=== PATIENT | male | born 1960 | race Caucasian/White ===

== ENCOUNTER 2023-02-08 10:50 | Inpatient (IN) | payer MEDICAID, SELFPAY ==
[2023-02-08] VITALS (36 sets, daily range): BP systolic 114–161; BP diastolic 57–92; PULSE 61–91; RESP 12–25; TEMP 36.4–36.6; O2SAT 90–99; BMI 40.9
--- NOTE | 2023-02-08 | ECHO_ITS ---
Patient Info Name: Andrew Pérez Age: 62 years : 1960 Gender: Male Ht: 72 in Wt: 299 lbs BSA: 2.68 m2 HR: 78 bpm BP: 116 / 62 mmHg Heart Rhythm: Sinus Rhythm Technical Quality: Fair Exam Date: 02/08/2023 4:12 PM Exam Location: [facility] Pulmonary Exam Room: 200 Patient Status: Inpatient Admit Date: 02/08/2023 Staff Ordering Physician: Sanjana Corbin MD (zamzam/cynthia) Board Certified Music Therapist: Akosua Tejada RDCS Attending Provider: Bridger Landaverde MD Referring Physician: Shaquille MICHEL; Exam Type: CA echo dop color flow w con Study Info Indications - chest pain nstem Complete two-dimensional, color flow and Doppler transthoracic echocardiogram is performed with contrast to opacify the left ventricle and to improve the deliniation of the left ventricle endocardial borders. Contrast/Agitated Saline Contrast/Ag. Saline: Definity Amount: --- ml Administered By: Akosua Tejada [facility] Existing IV Access: Yes IV Access Condition: patent with no signs of infiltration Summary 1. Technically difficult echocardiogram. 2. Normal left ventricular size with slight reduction in global systolic function. 3. Posterior and lateral hypokinesia. 4. Mildly sclerotic aortic valve. 5. Trivial mitral regurgitation. Left Ventricle Left ventricular chamber dimension is normal. Left ventricular systolic function is mildly reduced, estimated at 45-50%. The left ventricular diastolic function is grade I diastolic dysfunction. Right Ventricle Right ventricular chamber dimension is normal. Left Atria Left atrial chamber dimension is normal. Right Atria Right atrial chamber dimension is normal. Aortic Valve The aortic valve is normal. Pulmonic Valve The pulmonic valve is not well visualized. Mitral Valve The mitral valve has normal leaflets. There is trace mitral valve regurgitation. Tricuspid Valve The tricuspid valve leaflets are normal. Pericardium/Pleural The pericardium appears normal. Aorta The aortic root size at the sinus of Valsalva is normal. Left Ventricular Outflow Tract Name Value Normal LVOT 2D LVOT Diameter 2.09 cm LVOT Doppler LVOT Peak Gradient 6 mmHg LVOT Mean Gradient 3 mmHg LVOT VTI 24.41 cm LVOT VTI/AV VTI Ratio 0.75 LVOT Stroke Volume 83.84 ml LVOT CO 18.11 l/min LVOT CI 6.75 L/min/m2 Pulmonic Valve Name Value Normal PV Doppler PV Peak Gradient 6 mmHg Mitral Valve Name Value Normal
--- NOTE | ~2023-02-08 | CT_ITS ---
EXAMINATION: CTA chest abdomen pelvis DATE: 02/08/2023 13:03 INDICATION: Chest and abdominal pain. TECHNIQUE: Computed tomographic angiography (CTA) of the chest, abdomen, and pelvis was performed wit h 100 mL Omnipaque-350 intravenous contrast. Automated exposure control and iterative reconstruction technique were employed. The dose-length product was 1960.96 mGy-cm. Maximum intensity projection 3D- reconstructions of the aorta and other arteries were constructed by the technologist on a separate wo rkstation. COMPARISON: None. FINDINGS: CHEST CTA: There is mild emphysema. There is mild dependent atelectasis bilaterally. There is a 7 mm nodule at r ight major fissure, likely benign. The heart size is normal. There are coronary artery calcifications . No pericardial effusion. There is no pulmonary embolus. There is mild aortic atherosclerosis. No an eurysm or dissection. ABDOMEN AND PELVIS CTA: The liver is normal. The gallbladder is distended. The spleen, pancreas, and left adrenal gland are n ormal. There is a 17 mm mass in right adrenal gland measuring soft tissue attenuation. There are cyst s in the kidneys measuring up to 15 mm on the right. There is a 4 mm stone in right kidney. The prost ate is mildly enlarged. There is diverticulosis of the colon without evidence of diverticulitis. The appendix is normal. There are no dilated loops of bowel. There are no pathologically enlarged lymph n odes. There is calcified atherosclerosis of the aorta and many of the other arteries. There is no guille e intraperitoneal fluid. There is mild lumbar spondylosis. IMPRESSION: 1. Aortic atherosclerosis. No aneurysm or dissection. 2. Gallbladder distention, which may be secondary to fasting. Correlate with physical exam to exclude acute cholecystitis. 3. Mild emphysema. 4. 17 mm right adrenal mass. In the absence of known malignancy, this finding is likely an adenoma. Reviewed, dictated and finalized at location A. IMPRESSION: 1. Aortic atherosclerosis. No aneurysm or dissection. 2. Gallbladder distention, which may be secondary to fasting. Correlate with ph ysical exam to exclude acute cholecystitis. 3. Mild emphysema. 4. 17 mm right adrenal mass. In the absence of known malignancy, this finding i s likely an adenoma.
--- NOTE | ~2023-02-08 | XR_ITS ---
EXAMINATION: XR chest 2V DATE: 02/08/2023 11:34 INDICATION: Chest pain radiating into the left arm TECHNIQUE: PA and lateral views of the chest were obtained. COMPARISON: None FINDINGS: The lungs are clear with no focal airspace opacities, pulmonary edema, pleural effusion or pneumothor ax. The cardiomediastinal silhouette is normal. Mild thoracic spondylosis. IMPRESSION: 1. No acute cardiopulmonary disease. Reviewed, dictated and finalized at location A.
--- NOTE | 2023-02-08 10:52 | ECG_ITS ---
Measurements Intervals [place] Rate: 64 P: 53 WA: 151 QRS: 60 QRSD: 109 T: 76 QT: 400 QTc: 416 Interpretive Statements SINUS RHYTHM POSSIBLE LEFT ATRIAL ENLARGEMENT [-0.1mV P WAVE IN V1/V2] POSSIBLE RIGHT VENTRICULAR CONDUCTION DELAY [RSR (QR) IN V1/V2] NO PREVIOUS ECG AVAILABLE FOR COMPARISON Electronically Signed On 02-08-2023 14:20:41 CDT by Sanjana Corbin M.D.
[2023-02-08 11:12] LABS: Basophils Absolute Auto 0.1 K/mm3 (0.0-0.1); Basophils Percent Auto 0.4 % (0.2-1.2); Eosinophils Absolute Auto 0.3 K/mm3 (0-0.3); Hematocrit 45.9 % (42.0-52.0); Hemoglobin 15.4 g/dL (14.0-18.0); Immature Granulocyte Percent A 0.6 % (0-0.5); Lymphocytes Absolute Auto 3.02 K/mm3 (0.9-3.2); Lymphocytes Percent Auto 18.7 % (18.3-44.2); Mean Corpuscular HGB Conc 33.6 g/dl (32-36); Mean Corpuscular Hemoglobin 29.5 pg (26-34); Mean Corpuscular Volume 87.9 fl (80-100); Mean Platelet Volume 9.2 fl (7.4-10.4); Monocytes Absolute Auto 0.7 K/mm3 (0.1-0.6); Monocytes Percent Auto 4.3 % (2.6-8.5); Platelet Count Result 287 k/mm3 (150-375); Red Blood Count 5.22 M/mm3 (4.6-6.20); Red Cell Distribution Width 13.2 % (11.5-14.5); White Blood Count 16.2 K/mm3 (4.5-10.0)
[2023-02-08 11:20] LABS: Alanine Aminotransferase 20 U/L (6-50); Albumin Level 4.3 g/dL (3.5-5.1); Alkaline Phosphatase 107 U/L (38-126); Anion Gap 9 mmol/L (8-16); Aspartate Amino Transferase 30 U/L (17-59); Bilirubin,Total 1.3 mg/dL (0.2-1.3); Blood Urea Nitrogen 12 mg/dL (9-20); Calcium 9.1 mg/dL (8.4-10.2); Carbon Dioxide 29 mmol/L (22-30); Chloride 100 mmol/L (98-107); Estimated CRCL calculation 121 ml/min; Estimated Glomerular Filt Rate > 60; Glucose 160 mg/dL (65-110); Lipase 59 U/L (23-300); Potassium 3.5 mmol/L (3.4-5.0); Sodium 138 mmol/L (137-145)
[2023-02-08 11:24] LABS: Partial Thromboplastin Time 24.9 SECONDS (22.3-36.8); Prothrombin Time 12.9 Seconds (11.1-14.7)
[2023-02-08 11:37] LABS: Troponin I 0.124 ng/mL (0.000-0.034)
--- NOTE | 2023-02-08 12:25 | ECG_ITS ---
Measurements Intervals [place] Rate: 61 P: 46 ME: 158 QRS: 49 QRSD: 100 T: 64 QT: 419 QTc: 423 Interpretive Statements SINUS RHYTHM POSSIBLE RIGHT VENTRICULAR CONDUCTION DELAY [RSR (QR) IN V1/V2] COMPARED TO ECG 02/08/2023 10:54:12 NO SIGNIFICANT CHANGES Electronically Signed On 02-08-2023 14:23:15 CDT by Sanjana Corbin M.D.
--- NOTE | 2023-02-08 12:39 | PC.NURSE ---
c/o dizziness and cold sweat. HR in the 30's when nurse entered room. Pt c/o hurting all over .
--- NOTE | 2023-02-08 12:40 | ECG_ITS ---
Measurements Intervals [place] Rate: 61 P: 53 MO: 153 QRS: 47 QRSD: 106 T: 87 QT: 436 QTc: 442 Interpretive Statements SINUS RHYTHM RIGHT VENTRICULAR CONDUCTION ABNORMALITY T-WAVE ABNORMALITY CONSIDER LATERAL ISCHEMIA COMPARED TO PREVIOUS TRACING NO SIGNIFICANT DIFFERENCE COMPARED TO ECG 02/08/2023 12:42:20 NO SIGNIFICANT DIFFERENCE Electronically Signed On 02-09-2023 7:40:53 CDT by Bridger Viveros M.D.
--- NOTE | 2023-02-08 12:44 | ED.CHESTPAIN ---
HPI - Chest Pain General Chief Complaint: Chest Pain Stated Complaint: Chest pain Time Seen by Provider: 02/08/23 12:09 History of Present Illness HPI narrative: This is a 62-year-old male, with history of hypertension and hyperlipidemia, presenting to the emergency department complaining of chest pain for the past 2 days. He states 2 days ago, while eating spicy chili he developed chest pressure rated 8/10 radiating to left arm that improved spontaneously after approximately 20 minutes. Today he notes recurrence of the pain while sleeping, however it is now persistent. He denies pain elsewhere. Related Data Home Medications Medication Instructions Recorded Confirmed lisinopril 20 1 tablet DAILY 02/08/23 02/08/23 mg-hydrochlorothiazide 12.5 mg tablet metoprolol tartrate 50 mg tablet 50 mg PO BID 02/08/23 02/08/23 Allergies Allergy/AdvReac Type Severity Reaction Status Date / Time No Known Allergies Allergy Verified 02/08/23 11:42 Review of Systems Review of Systems: CONSTITUTIONAL: Denies fever, chills, or sweats. CARDIOVASCULAR: Chest pain denies palpitations, or edema. RESPIRATORY: Denies cough or dyspnea. GASTROINTESTINAL: Denies abdominal pain, nausea, vomiting, or diarrhea. GENITOURINARY: Denies dysuria or hematuria. SKIN: Denies rash or itching. MUSCULOSKELETAL: Left arm numbness denies back pain, joint pain, or myalgia. NEUROLOGIC: Denies headache, numbness, dizziness, or weakness. PSYCHIATRIC: Denies anxiety or depression. [facility] Past Medical History Medical History Aortic atherosclerosis Noted on CT on 02/08/2023. 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 Likely an adenoma. Surgical History Surgical History No history of previous surgery Family History Family History Mother Aortic aneurysm Father Metastatic cancer Social History Social History Social History: Surrogate medical decision maker: Code status: Full code. Smoking packs per day: 1 Smoking cigarettes per day: 20.0 Years smoked: 20 Smoking pack-years: 20.00 Smoking status: Former smoker Tobacco type: cigarettes Smoking end date: 11/05/01 Additional smoking assessment comments: Smoked 1 to 2 packs of cigarettes per day. Alcohol intake: current Drinks per week: 9 Alcohol use details: Three alcoholic beverages a week. Substance use: current Substance use type: marijuana Other substance usage details: 1 joint a day. Lack of Transportation: No Lack of Food: Never True Current Housing: Decline to Answer Concerned About Future Housing: No Difficulty Paying Gas/Electric Bills: No Difficulty Paying for Meds: No Currently Unemployed: No Education: Decline to Answer Difficulty w/ Childcare or Family Care: Decline to Answer Additional living arrangements comments: Lives with spouse, child, and grandson in [place]. Additional occupation/education comments: [employer]. Spiritual care concerns: No Exam Narrative: GENERAL: Well-developed, well-nourished, and in no acute distress. HEAD: Normocephalic, atraumatic. EYES: PERRLA and EOMI. ENT: Nares clear, no rhinorrhea or epistaxis. Mucous membranes moist. Oropharynx without tonsillar hypertrophy exudate or other lesions. CHEST: Clear to auscultation. No respiratory distress. No wheezes rales or rhonchi HEART: Regular rate and rhythm. No murmur heard. Pulses in the bilateral upper extremities, 1+ pulses in the bilateral lower extremities. ABDOMEN: Soft, nontender, nondistended, normal active bowel sounds. EXTREMITIES: Normal range of motion. No edema. SKIN: Warm, dry, no rash. NEURO: No focal deficits. Alert and oriented x3.
[2023-02-08] MEDS: ONDANSETRON INJ 4 MG/2 ML VIAL IV PUSH ×2 (13:11→17:45)
[2023-02-08] MEDS: MORPHINE SULFATE (*CRX) 4 MG/ML INJ IV PUSH ×2 (13:11→21:14)
--- NOTE | 2023-02-08 14:10 | PM.IMHP ---
H&P: HPI History of Present Illness Date/Time: 02/08/23 14:10 Chief Complaint: Chest pain. Narrative: This is a very pleasant 62-year-old male with hypertension and prediabetes who presented to the emergency department from home for evaluation of chest pain. Patient provides the following history. Not long after eating spicy chili on Sunday he developed chest discomfort which resolved after belching a couple of times. Since that time he has been experiencing exertional, midsternal chest pressure, mainly with stairs, which radiates into the left upper arm. Associated symptoms include mild shortness of breath, nausea, and perhaps a bit of lightheadedness. He has never had similar symptoms and he has no known personal or family history of coronary artery disease. He has never had a stress test. He does not typically experience GERD symptoms and the incident on after eating chili seems to be incidental. He has not had fever, chills, sweats, epigastric or abdominal pain, or vomiting. In the ED: Vital signs were stable on arrival, blood pressures were a bit elevated in the 150s systolic. Pertinent labs include a white blood cell count of 16.2, random glucose of 160, and a troponin of 0.124. CMP and lipase were unremarkable. Chest x-ray showed no acute cardiopulmonary disease. CT of the chest, abdomen, and pelvis showed aortic atherosclerosis with no aneurysm or dissection, mild emphysema, 17 mm right adrenal mass which is likely an adenoma, and gallbladder distension which may be secondary to fasting. EKG showed a sinus rhythm with a rate of 61, normal RI interval, and no acute ST segment depression or elevation. He was given a dose of morphine which helped his chronic sciatica pain but did not improve the pressure in his chest much. Nitroglycerin has helped the pressure. Review of Systems Review of Systems: Twelve systems were reviewed. No fever, chills, or sweats. No recent cold or flu symptoms. He denies significant GERD symptoms. Aside from Sunday, he has not had issues with bloating or belching. He has taken 3 tablets of Aleve almost daily for quite some time, more recently he saw a chiropractor and was told to take 800 mg of ibuprofen b.i.d.. He has backed off taking that as he thought perhaps that was what was causing his symptoms on Kyra evening in addition to the chili. Bowel movements have been unremarkable since starting a probiotic several months ago. He does report passing a darker stool a couple of days ago. No orthopnea, paroxysmal nocturnal dyspnea, or significant edema. No history of venous thromboembolism. No syncope or near syncope. Except as documented, all other systems were reviewed and are negative. [facility] Past Medical History Medical History Aortic atherosclerosis Noted on CT on 02/08/2023. 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 Likely an adenoma. Surgical History Surgical History No history of previous surgery Family History Family History Mother Aortic aneurysm Father Metastatic cancer Social History Social History (Updated 02/10/23 @ 00:15 by Yajaira Burnett PA-C) Social History: Code status: Full code. Smoking packs per day: 1 Smoking cigarettes per day: 20.0 Years smoked: 20 Smoking pack-years: 20.00 Smoking status: Former smoker Tobacco type: cigarettes Smoking end date: 11/05/01 Additional smoking assessment comments: Smoked 1 to 2 packs of cigarettes per day. Alcohol intake: current Drinks per week: 9 Alcohol use details: Three alcoholic beverages a week. Substance use: current Substance use type: marijuana Other substance usage details: 1 joint a day. Lack of Transportation: No
[2023-02-08] MEDS: HEPARIN SOD/D5W 100 UNITS/ML 25,000 UNITS/250 ML BAG 16.32 UNITS IV CONT (14:14)
--- NOTE | 2023-02-08 14:19 | PC.NURSE ---
1 NTG given SL for chest pressure 7/10.
--- NOTE | 2023-02-08 14:25 | PC.NURSE ---
Chest pressure 4/10. 1 NTG given SL.
--- NOTE | 2023-02-08 14:30 | PC.NURSE ---
Chest pressure 2/10. 1 NTG given SL.
[2023-02-08] MEDS: HEPARIN SODIUM 5,000 UNITS/ML VIAL 4000 UNITS IV PUSH ×2 (14:33→21:02)
[2023-02-08] MEDS: HEPARIN SOD/D5W 100 UNITS/ML 25,000 UNITS/250 ML BAG 10 UNITS IV CONT (14:38)
--- NOTE | 2023-02-08 14:58 | PM.CNCAR ---
Assessment and Plan Assessment and plan (1) Non-ST elevated myocardial infarction: Code(s): I21.4 - Non-ST elevation (NSTEMI) myocardial infarction Status: Acute Assessment and Plan: 62 year old male presenting to the hospital with a chief complaint of chest pain x 3 days and found to have an NSTEMI. Troponin trend thus far 0.124, 0.400. EKG showing sinus rhythm, no ischemic ST-T changes. Currently comfortable after administration of nitroglycerin. Recommend cardiac cath, which will take place tomorrow morning Plavix and ASA load Continue heparin gtt Nitro paste Will start beta junior Check echo Repeat EKG Check CBC in a.m. prior to angiogram (WBC 16.1 today, no s/s infection) History of Present Illness History of Present Illness Consult date/time: 02/08/23 14:58 Requesting physician: Justin Worthington MD Consult reason: chest pain Reason For Visit: NSTEMI Narrative: Mr. Pérez is a 62 year old male with a history of hypertension and dyslipidemia. He is also a former smoker. This is a patient who presents to the emergency department with a chief complaint of chest pain. Pain began 3 days ago after he ate some spicy chili. He assumed the pain was related to indigestion. He describes the pain as a tightness that radiated down his left arm. He had a recurrence of the pain when he climbed the stairs in his house and at that time he became more concerned about a cardiac problem. The pain went away after 5-10 minutes of rest. Last night he awoke from sleep with severe left sided chest pain, nausea, feeling like he was going to pass out, and diaphoresis. When he arrived in the emergency department his chest pain was an 8/10 but has decreased to a 1-2/10 with administration of nitro. Review of Systems Review of Systems: All systems reviewed & are unremarkable except as noted in HPI and below PMFSH Past Medical History Medical History Aortic atherosclerosis Noted on CT on 02/08/2023. 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 Likely an adenoma. Surgical History Surgical History No history of previous surgery Family History Family History Mother Aortic aneurysm Father Metastatic cancer Social History Social History Social History: Surrogate medical decision maker: Code status: Full code. Smoking packs per day: 1 Smoking cigarettes per day: 20.0 Years smoked: 20 Smoking pack-years: 20.00 Smoking status: Former smoker Additional smoking assessment comments: Smoked 1 to 2 packs of cigarettes per day. Alcohol intake: current Alcohol use details: Three alcoholic beverages a week. Substance use: current Substance use type: marijuana Other substance usage details: 1 joint a day. Additional living arrangements comments: Lives with spouse, child, and grandson in [place]. 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 Meds Home Medications and Allergies Home Medications Medication Instructions Recorded Confirmed Type lisinopril 20 tablet 02/08/23 History mg-hydrochlorothiazide 12.5 mg tablet metoprolol tartrate 50 mg tablet mg 02/08/23 History Allergies Allergy/AdvReac Type Severity Reaction Status Date / Time No Known Allergies Allergy Verified 02/08/23 11:42 Vital Signs Vital Signs - 24 hr 02/08/23 11:00 02/08/23 11:44 02/08/23 11:42 Temperature 36.6 C Pulse Rate 69 72 70 Respiratory Rate 18 16 Blood Pressure 151/92 H 161/88 H Pulse Oximetry 99 94 Oxygen Delivery Room Air 02/08/23 11:43 02/08/23 11:45 02/08/23 12:00 Temperature Pulse Rate 70 68 68 Respiratory Rate 20 20 19 Blood Pressure
--- NOTE | 2023-02-08 15:11 | PC.NURSE ---
Chest pressure relieved with nitro. Resting comfortably.
[2023-02-08] MEDS: ASPIRIN 81 MG CHEWABLE TABLET 324 MG PO (15:15)
[2023-02-08] MEDS: PERFLUTREN LIPID MICROSPHERES 1.5 ML VIAL DILUTED TO 10 ML TOTAL VOLUME IV PUSH (16:45)
[2023-02-08] MEDS: CLOPIDOGREL BISULFATE 300 MG TABLET 600 MG PO (16:53)
[2023-02-08] MEDS: ATORVASTATIN 40 MG TABLET 80 MG PO (16:54)
[2023-02-08] MEDS: METOPROLOL SUCCINATE EXT REL 25 MG TABCR PO (16:55)
[2023-02-08] MEDS: NITROGLYCERIN 0.4 MG/HR PATCH 1 PATCH TRANSDERM (16:56)
--- NOTE | 2023-02-08 17:57 | ECG_ITS ---
Measurements Intervals [place] Rate: 61 P: 42 IA: 155 QRS: 43 QRSD: 102 T: 69 QT: 442 QTc: 449 Interpretive Statements SINUS RHYTHM RV CONDUCTION ABNORMALITY T-WAVE ABNORMALITY CONSIDER LATERAL ISCHEMIA ABNORMAL ECG COMPARED TO ECG 02/08/2023 15:01:04 NO SIGNIFICANT CHANGES Electronically Signed On 02-09-2023 7:47:15 CDT by Bridger Viveros M.D.
[2023-02-08 18:22] LABS: Glucose Point of Care 136 mg/dl (65-105)
--- NOTE | 2023-02-08 18:26 | PC.NURSE ---
Pt called me to room. Feeling nauseous. I got order from Windy BELCHER for lilian. Returned to pts room minutes later, he was very diaphoretic, pale and very nauseous. No c/o CP, numbness or tingling. Obtained a set of vitals and sugar. Called Windy to let her know. She came to bedside. Performed STAT EKG. After about 15 min in room pts symptoms started to resolve some. Waiting for response from Shaquille to see if we will proceed with cath tonight or as planned in the am.
[2023-02-08 20:46] LABS: Alanine Aminotransferase 25 U/L (6-50); Albumin Level 4.6 g/dL (3.5-5.1); Alkaline Phosphatase 116 U/L (38-126); Anion Gap 8 mmol/L (8-16); Aspartate Amino Transferase 90 U/L (17-59); Bilirubin,Total 1.4 mg/dL (0.2-1.3); Blood Urea Nitrogen 14 mg/dL (9-20); Calcium 9.5 mg/dL (8.4-10.2); Carbon Dioxide 33 mmol/L (22-30); Chloride 97 mmol/L (98-107); Estimated CRCL calculation 108 ml/min; Estimated Glomerular Filt Rate > 60; Glucose 144 mg/dL (65-110); Lipase 84 U/L (23-300); Potassium 3.8 mmol/L (3.4-5.0); Sodium 138 mmol/L (137-145)
[2023-02-08 20:51] LABS: Partial Thromboplastin Time 27.4 SECONDS (22.3-36.8)
[2023-02-08] MEDS: MORPHINE SULFATE (*CRX) 2 MG/ML INJ 1 MG IV PUSH (23:43)
[2023-02-09] VITALS (22 sets, daily range): BP systolic 82–128; BP diastolic 40–87; PULSE 58–88; RESP 15–24; TEMP 36.5–36.9; O2SAT 88–98
--- NOTE | 2023-02-09 | ECG_ITS ---
Measurements Intervals [place] Rate: 60 P: 43 ID: 142 QRS: 37 QRSD: 102 T: 60 QT: 407 QTc: 409 Interpretive Statements SINUS RHYTHM INFERIOR MYOCARDIAL INFARCTION [40+ ms Q WAVE AND/OR ST/T ABNORMALITY IN II/aVF], OF INDETERMINATE AGE WITH POSTERIOR EXTENSION COMPARED TO ECG 02/08/2023 18:14:19 MORE SIGNIFICANT INFERIOR Q-WAVE HAS DEVELOPED Electronically Signed On 02-09-2023 7:52:54 CDT by Bridger Viveros M.D.
[2023-02-09] MEDS: NITROGLYCERIN SL 0.4 MG TABLET SUBLINGUAL ×2 (00:05→00:13)
--- NOTE | 2023-02-09 01:12 | ECG_ITS ---
Measurements Intervals [place] Rate: 65 P: 52 WA: 146 QRS: 33 QRSD: 106 T: 73 QT: 415 QTc: 432 Interpretive Statements SINUS RHYTHM INFERIOR MYOCARDIAL INFARCTION [40+ ms Q WAVE AND/OR ST/T ABNORMALITY IN II/aVF], OF INDETERMINATE AGE WITH POSTERIOR EXTENSION ABNORMAL ECG COMPARED TO ECG 02/09/2023 00:11:23 NO SIGNIFICANT CHANGES Electronically Signed On 02-09-2023 7:54:15 CDT by Bridger Viveros M.D.
--- NOTE | 2023-02-09 01:48 | WPDMODSED ---
Moderate Sedation Note-Pt Data Patient Data Allergies Allergy/AdvReac Type Severity Reaction Status Date / Time No Known Allergies Allergy Verified 02/08/23 11:42 Home Medications Medication Instructions Recorded Confirmed Type lisinopril 20 1 tablet DAILY 02/08/23 02/08/23 History mg-hydrochlorothiazide 12.5 mg tablet metoprolol tartrate 50 mg tablet 50 mg PO BID 02/08/23 02/08/23 History Current Medications: Active Medications Aspirin (Aspirin 81 Mg Chewable Tablet) 81 mg PO DAILY@0800 [facility] Atorvastatin Calcium (Atorvastatin 40 Mg Tablet) 80 mg PO DAILY [facility] Last Admin: 02/08/23 16:54 Dose: 80 mg Clopidogrel Bisulfate (Clopidogrel Bisulfate 75 Mg Tablet) 75 mg PO [facility] Heparin Sodium (Porcine) (Heparin Sodium 5,000 Units/Ml Vial) 4,000 units IV PUSH PRN PRN PRN Reason: aPTT less than 55 seconds Last Admin: 02/08/23 21:02 Dose: 4,000 units Heparin Sodium (Porcine) (Heparin Sodium 5,000 Units/Ml Vial) 4,000 units IV PUSH PRN PRN PRN Reason: aPTT 55 - 70 seconds Heparin Sodium/Dextrose (Heparin Sodium/D5w 100 Units/Ml) 25,000 units in 250 mls @ 14 mls/hr IV CONT .[id number] [facility]; Protocol Last Infusion: 02/08/23 21:11 Dose: 1,400 units/hr, 14 mls/hr Metoprolol Succinate (Metoprolol Succinate Ext Rel 25 Mg Tabcr) 25 mg PO [facility] Last Admin: 02/08/23 16:55 Dose: 25 mg Morphine Sulfate (Morphine Sulfate (*Crx) 4 Mg/Ml Inj) 4 mg IV PUSH Q4H PRN PRN Reason: Pain Rated 7-10 Last Admin: 02/08/23 21:14 Dose: 4 mg Nitroglycerin (Nitroglycerin 0.4 Mg/Hr Patch) 1 patch TRANSDERM [facility] Last Admin: 02/08/23 16:56 Dose: 1 patch Nitroglycerin (Nitroglycerin Sl 0.4 Mg Tablet) 0.4 mg SUBLINGUAL Q5MIN PRN PRN Reason: Chest Pain Last Admin: 02/09/23 00:13 Dose: 0.4 mg Ondansetron HCl (Ondansetron Inj 4 Mg/2 Ml Vial) 4 mg IV PUSH Q6H PRN PRN Reason: Nausea And Vomiting Last Admin: 02/08/23 17:45 Dose: 4 mg Sedation/Anesthesia: No previous sedation/anesthesia problems (including family history). [facility] Past Medical History Medical History Aortic atherosclerosis Noted on CT on 02/08/2023. 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 Likely an adenoma. Surgical History Surgical History No history of previous surgery Family History Family History Mother Aortic aneurysm Father Metastatic cancer Social History Social History Social History: Surrogate medical decision maker: Code status: Full code. Smoking packs per day: 1 Smoking cigarettes per day: 20.0 Years smoked: 20 Smoking pack-years: 20.00 Smoking status: Former smoker Tobacco type: cigarettes Smoking end date: 11/05/01 Additional smoking assessment comments: Smoked 1 to 2 packs of cigarettes per day. Alcohol intake: current Drinks per week: 9 Alcohol use details: Three alcoholic beverages a week. Substance use: current Substance use type: marijuana Other substance usage details: 1 joint a day. Lack of Transportation: No Lack of Food: Never True Current Housing: Decline to Answer Concerned About Future Housing: No Difficulty Paying Gas/Electric Bills: No Difficulty Paying for Meds: No Currently Unemployed: No Education: Decline to Answer Difficulty w/ Childcare or Family Care: Decline to Answer Additional living arrangements comments: Lives with spouse, child, and grandson in [place]. Additional occupation/education comments: Plumber. Spiritual care concerns: No Mod Sed Physical Exam Physical Exam Pre Procedural Exam: Normal: Airway Hours since solid foods: 6 Hours since liquid intake: 6 Mallampati Classification: class II Internal Med
--- NOTE | 2023-02-09 01:49 | P.HPUP_ITS ---
History and Physical Update Update Date/Time: 02/09/23 01:49 History and Physical has been reviewed, including an updated exam of the patient. Patient had recurrent and persistent symptoms of chest pain which did not respond to antianginal medications. His EKG showed subtle ST segment c hanges in the inferior leads. In light of this, cardiac catheterization lab was activated for emergent cardiac catheterization and possible intervention. Risks, benefits, and alternatives have been discussed and questions answered. Patient agrees to proceed with procedure.
--- NOTE | 2023-02-09 01:52 | WPDCARDPROC ---
Cardiac Cath Procedure Note Date of procedure:: 02/09/23 Performing physician:: Sherman Grider MD Procedure Procedure note:: EMERGENT CARDIAC CATHETERIZATION AND PERCUTANEOUS CORONARY INTERVENTION REPORT DATE OF PROCEDURE: 02/09/2023 INDICATION FOR PROCEDURE: acute coronary syndrome- non ST elevation myocardial infarction with clinical and hemodynamic instability BRIEF CLINICAL HISTORY: 62-year-old male with hypertension, dyslipidemia; history of tobacco abuse. Patient presented to [facility] on 02/08/2023 with about 2 day history of chest discomfort. Presenting EKG showed sinus rhythm, ST depression and T-wave inversion in the leads 1 and aVL. He was initiated on standard treatment for non ST elevation ME including anticoagulation with unfractionated heparin . Overnight, patient had severe chest discomfort despite antianginal medications associated with hypotension with systolic blood pressure in 80s and repeat EKG showed subtle ST segment abnormality in the inferior leads. Patient's troponins have upward trend with current peak troponin level of 8.09. In light of patient's clinical instability, cardiac catheterization lab was activated. Benefits and risks of the procedure were discussed with the patient in depth, and informed consent was obtained prior to the procedure. Risks of the procedure include but are not limited to vascular complications including groin hematoma, retroperitoneal bleed, vessel perforation; periprocedural ME, cardiac arrhythmias, stroke, contrast induced nephropathy, and . After discussing all the benefits, risks and alternatives, patient was willing to proceed with the procedure. PROCEDURES PERFORMED: 1. Emergent left heart catheterization- Selective left and right coronary angiogram; left ventriculogram and hemodynamic assessment 2. Percutaneous coronary intervention ( IVUS guided)- a) balloon angioplasty and stenting of diffuse subtotal stenosis in the mid RCA using a 3.5 x 38 mm Medtronic resolute pete zotarolimus eluting stent (ZES); balloon angioplasty and stenting of proximal RCA using a 5.0 x 22 mm resolute pete ZES b) intravascular ultrasound ( IVUS) of RCA 3. Deployment of Mynx hemostatic device 4. Moderate sedation-CPT code 98375 MODERATE SEDATION: Midazolam 1 mg; fentanyl 50 mcg. Start time 0207 , Stop time 0259 ; Total [id number] time 52 minutes; Elen Sands RN was trained observer for moderate sedation. ACCESS SITE: Right common femoral artery PROCEDURE NOTE: After obtaining informed consent, patient was emergently brought to catheterization lab and prepped and draped in a usual sterile manner. After local anesthesia with lidocaine, right common femoral artery access was taken with micropuncture needle followed by insertion of a 6 Latvian sheath. Selective left and right coronary angiogram was performed using 5 Latvian JL4 and 6 FrenchJR4 guide catheters respectively. Orthogonal views were taken. After completion of PCI, a 5 Latvian pigtail catheter was advanced in the LV cavity and was flushed with normal saline. LV pressure measurement was performed. After this, left ventriculogram was performed. The catheter was flushed again, and gradient across the aortic valve was measured on the pullback of the catheter. The angiographic findings and details of intervention are given below. FINDINGS: LEFT MAIN CORONARY: A medium caliber vessel with minor irregularities in the mid -distal segment. The vessel trifurcates into LAD, ramus intermedius and left circumflex branches. LEFT ANTERIOR DESCENDING ARTERY: Lad is a medium caliber vessel, tapers distally and becomes diminutive vessel near LV apex. Minor irregularities are seen in the proximal segment. Diagonal branch is a medium caliber vessel. RAMUS INTERMEDIUS: Medium caliber vessel, about 30-50% stenosis in the proximal segment. LEFT CIRCUMFLEX ARTERY: Medium caliber vessel, gives rise to medium caliber OM branch.
[2023-02-09] MEDS: SODIUM CHLORIDE 0.9% IV 1,000 ML 125 ML IV CONT (03:30)
[2023-02-09 03:52] LABS: Basophils Percent Auto 0.2 % (0.2-1.2); Eosinophils Percent Auto 0.2 % (0-4.4); Hematocrit 41.7 % (42.0-52.0); Hemoglobin 13.9 g/dL (14.0-18.0); Immature Granulocyte Absolute 0.13 K/mm3 (0.00-0.031); Immature Granulocyte Percent A 0.6 % (0-0.5); Lymphocytes Absolute Auto 1.82 K/mm3 (0.9-3.2); Mean Corpuscular HGB Conc 33.3 g/dl (32-36); Mean Corpuscular Hemoglobin 30.1 pg (26-34); Mean Corpuscular Volume 90.3 fl (80-100); Mean Platelet Volume 8.9 fl (7.4-10.4); Monocytes Percent Auto 4.9 % (2.6-8.5); Neutrophils Absolute Auto 17.2 K/mm3 (1.3-6.7); Neutrophils Percent Auto 85.1 % (45.5-73.1); Platelet Count Result 254 k/mm3 (150-375); Red Blood Count 4.62 M/mm3 (4.6-6.20); Red Cell Distribution Width 13.6 % (11.5-14.5); White Blood Count 20.2 K/mm3 (4.5-10.0)
[2023-02-09 03:57] LABS: Anion Gap 5 mmol/L (8-16); Blood Urea Nitrogen 20 mg/dL (9-20); Calcium 8.6 mg/dL (8.4-10.2); Carbon Dioxide 34 mmol/L (22-30); Chloride 98 mmol/L (98-107); Cholesterol 180 mg/dL (0-200); Estimated CRCL calculation 90 ml/min; Estimated Glomerular Filt Rate > 60; Glucose 127 mg/dL (65-110); HDL Direct 21 mg/dL; Potassium 3.6 mmol/L (3.4-5.0); Sodium 137 mmol/L (137-145); Triglycerides 359 mg/dL (<150)
--- NOTE | 2023-02-09 04:02 | PC.NURSE ---
This patient, Andrew Pérez, was received from [[employer] Senior Specialist] on 02/09/23 at 0355. Patient/family oriented to unit policies and routines. Report received from KEYLA Healy.
--- NOTE | 2023-02-09 04:04 | PC.NURSE ---
0330 integrilin drip off per Monet Wood RN.
[2023-02-09 04:08] LABS: LDL Cholesterol Direct 93 mg/dL
[2023-02-09 04:40] LABS: Hemoglobin A1C 5.7 % (<5.7)
--- NOTE | 2023-02-09 07:45 | WPDCNINT ---
Assessment and Plan Assessment and plan (1) Non-ST elevation SD (NSTEMI): Code(s): I21.4 - Non-ST elevation (NSTEMI) myocardial infarction Status: Acute Assessment and Plan: Patient presented with chest pain on 02/08/2023, initial EKG did not show any ST-T changes, patient was admitted with NSTEMI and later for the night of admission patient became hypotensive with increasing chest pain and was taken to the cardiac r and d lab technician, angiogram was performed and showed diffuse subtotal stenosis in mid RCA and 50-60% stenosis of the proximal RCA. PTCA/PCI of mid RCA with GREGOR x1 and proximal RCA with GREGOR x1. EF 60-65%, LVEDP was 15 mmHg, LV dysfunction with mid inferior wall severe hypokinesis to akinesis -patient started on dual antiplatelet therapy with aspirin ticagrelor -continue metoprolol and atorvastatin -cardiology following -continue risk factor modification (2) Hyperlipidemia: Code(s): E78.5 - Hyperlipidemia, unspecified Status: Acute Assessment and Plan: Continue atorvastatin (3) Hypertension: Code(s): I10 - Essential (primary) hypertension Status: Acute Assessment and Plan: Currently on metoprolol, adequate blood pressure control at this time Plan DVT prophylaxis: Status post cardiac catheterization Stress ulcer prophylaxis: Not indicated Nutrition: Heart healthy diet Code Status: Full code Critical Care Time Spent: 46 minutes Due to a high probability of clinically significant, life threatening deterioration, the patient required my highest level of preparedness to intervene emergently and I personally spent this critical care time directly and personally managing the patient. This critical care time included obtaining a history; examining the patient; pulse oximetry; ordering and review of studies; arranging urgent treatment with development of a management plan; evaluation of patient's response to treatment; frequent reassessment; and discussions with other providers. It was exclusive of separately billable procedures and treating other patients and teaching time. Please see Assessment and Plan section and the rest of the note for further information on patient assessment and treatment This dictation may have been done utilizing a voice recognition system. Attempts have been made to correct errors. However, there may be uncorrected grammatical, spelling, and recognitions errors present. Shackler Consult Note Consult date: 02/09/23 Reason for consult: Chest pain radiated to left arm, nausea, diaphoresis, shortness of breath. Diagnosed with NSTEMI status post PTCA/PCI with GREGOR x2 to proximal and mid RCA. EF 60-65%, LVEDP 15 mmHg HPI: Andrew Pérez is a 62 year old male with past medical history of essential hypertension, hyperlipidemia, former smoker presented the ED on 02/08/2023 with complains of chest pain that began 3 days ago after he ate some chili. He thought it was related to indigestion. Described the chest pain as chest tightness, radiating to his left arm. Chest pain was also associated with shortness of breath, nausea, diaphoresis and presyncope. Patient presented the ED with chest pain intensity 8/10 which decreased to 2/10 after administration of nitro. EKG shows sinus rhythm with no acute ST-T changes. Patient was started on heparin infusion along with clopidogrel, aspirin and statin. Over the course of the day patient is chest pain worsened, he was hypotensive with systolic blood pressures in the ET and repeat EKG showed subtle ST segment abnormalities in the inferior leads. Patient's troponins trended upwards and peaked at 8.09. Cardiology was called overnight and given patient's clinical instability was taken for an angiogram and was found to have diffuse subtotal stenosis in mid RCA and 50-60% stenosis of the proximal RCA. PTCA/PCI of mid RCA with GREGOR x1 and proximal RCA with GERGOR x1. EF 60-65%, LVEDP was 15 mmHg, LV dysfunction with mid inferior wall
[2023-02-09] MEDS: MORPHINE SULFATE (*CRX) 4 MG/ML INJ IV PUSH (08:35)
[2023-02-09] MEDS: ATORVASTATIN 40 MG TABLET 80 MG PO (09:48)
[2023-02-09] MEDS: TICAGRELOR 90 MG TABLET PO (09:48)
[2023-02-09] MEDS: ASPIRIN 81 MG ENTERIC TABLET PO (09:48)
[2023-02-09] MEDS: METOPROLOL TARTRATE 12.5 MG TABLET PO (09:48)
--- NOTE | 2023-02-09 10:06 | PM.PNCARD ---
Progress Note: A&P Assessment and Plan (1) Non-ST elevation MS (NSTEMI): Code(s): I21.4 - Non-ST elevation (NSTEMI) myocardial infarction Status: Acute Plan 62-year-old man presenting to the hospital yesterday with acute coronary syndrome. Patient was brought to the laboratory technical specialist in the middle of the night found to have severe single-vessel coronary disease for which he underwent effective mechanical revascularization using 2 drug-eluting stents. He is asymptomatic and stable at this time. It is fine with me to discharge this patient later today since he is asymptomatic ambulatory and has no active complaints. He had no complications following his PCI and a very good angiographic result. I will arrange for appropriate/ timely follow-up in our office in 2-3 weeks following discharge. Bridger Viveros MD [facility] Subjective Date/time seen: date of service:02/09/23 10:06 Interval history: Follow-up visit in this 62-year-old man with: Newly diagnosed coronary artery disease patient with acute coronary syndrome presenting yesterday. Patient was brought to the cardiac catheterization lab in the middle of the night with worsening symptoms despite maximal medical therapy. He was found to have very high-grade stenosis in large right coronary artery which was treated successfully with drug-eluting stent. Patient received large caliber stents and is been asymptomatic since then. He is now sitting up feels well and has no active cardiovascular symptoms or complaints. Long conversation with the patient detail in his new diagnosis of coronary artery disease, yesterday's interventional procedure and the need for strict compliance with dual anti-platelet therapy. He understands all of this well. Exam Const: General: comfortable and no acute distress Other: Very pleasant obese man sitting in the chair at the bedside HENMT: Mouth: Yes moist mucous membranes Eyes: Sclera: sclerae normal Pupils: Equal, round and reactive pupils present Neck: Neck: supple and no JVD Other: carotid pulses normal no bruits Resp: Effort & Inspection: normal respiratory effort Auscultation: clear to auscultation bilaterally Other: breath sounds are distant but clear Cardio: Rate: regular rate Rhythm: regular rhythm Other: PMI not palpable because of his size otherwise unremarkable exam GI: GI Palp: Yes Soft to palpation Auscultation: normal bowel sounds Skin: General skin exam: normal color Neuro: Other: alert and oriented x3 normal cognition Extrem: Other: no edema, good distal pulses Objective Data Vital Signs Vital Signs: Vital Signs - 24 hr 02/08/23 11:00 02/08/23 11:44 02/08/23 11:42 Temperature 36.6 C Pulse Rate 69 72 70 Respiratory Rate 18 16 Blood Pressure 151/92 H 161/88 H Pulse Oximetry 99 94 Oxygen Delivery Room Air Oxygen Flow Rate 02/08/23 11:43 02/08/23 11:45 02/08/23 12:00 Temperature Pulse Rate 70 68 68 Respiratory Rate 20 20 19 Blood Pressure Pulse Oximetry 95 96 91 Oxygen Delivery Oxygen Flow Rate 02/08/23 12:01 02/08/23 12:15 02/08/23 12:16 Temperature Pulse Rate 67 71 71 Respiratory Rate 18 25 H 12 Blood Pressure 141/82 H 156/83 H Pulse Oximetry 93 95 96 Oxygen Delivery Oxygen Flow Rate 02/08/23 12:30 02/08/23 13:17 02/08/23 13:30 Temperature Pulse Rate 67 64 61 Respiratory Rate 24 H 16 17 Blood Pressure Pulse Oximetry 94 98 96 Oxygen Delivery Oxygen Flow Rate 02/08/23 13:31 02/08/23 13:45 02/08/23 13:46 Temperature Pulse Rate 61 64 68 Respiratory Rate 17 15 16 Blood Pressure 127/69 143/80 H Pulse Oximetry 97 95 96 Oxygen Delivery Oxygen Flow Rate 02/08/23 14:00 02/08/23 14:01 02/08/23 14:15 Temperature Pulse Rate 64 63 68 Respiratory Rate 13 15 12 Blood Pressure 139/81 Pulse Oximetry 95 93 Oxygen Delivery Oxygen Flow Rate 02/08/23 14:16 02/08/23 14:23 02/08/23 1
--- NOTE | 2023-02-09 15:55 | PM.DS ---
DS: Admitting Diagnosis Discharge Date 02/09/2023 Admitting Diagnosis Chest pain DS: Discharge Diagnosis Discharge Diagnosis (1) Non-ST elevated myocardial infarction: Code(s): I21.4 - Non-ST elevation (NSTEMI) myocardial infarction Status: Acute (2) Hypertension: Code(s): I10 - Essential (primary) hypertension Status: Acute (3) Prediabetes: Code(s): R73.03 - Prediabetes Status: Acute (4) Right adrenal mass: Code(s): E27.8 - Other specified disorders of adrenal gland Status: Acute Plan The patient presented to the emergency department from home for evaluation of exertional, mid chest pressure radiating to the left arm over the past couple of days as per HPI. Labs, imaging, EKG, and all reports were personally reviewed. There are no ST segment depressions or elevations on EKG today. His initial troponin however was elevated. I think the postprandial discomfort that he had on Sunday is less likely related to a GI etiology is more concerning given the exertional chest pain he has had the last several days. Morphine did not help the chest pressure, sublingual nitroglycerin has helped tremendously. At this time he is being started on heparin drip and he is being loaded with clopidogrel and aspirin. He has been started on a high-intensity statin. Dr. Corbin plans on taking the patient to the central lab technician tomorrow. Blood pressures were reviewed and they have been stable. Check fasting lipids, glucose, and hemoglobin A1c in a.m. Check stool for occult blood given reports of dark stool the other day and long time NSAID use. His home medications will be reviewed and resumed as appropriate. DS: Summary Hospital Course Reason for hospitalization: Chest pain. Narrative: This is a very pleasant 62-year-old male with hypertension and prediabetes who presented to the emergency department from home for evaluation of chest pain. Patient provides the following history. Not long after eating spicy chili on Sunday he developed chest discomfort which resolved after belching a couple of times. Since that time he has been experiencing exertional, midsternal chest pressure, mainly with stairs, which radiates into the left upper arm. Associated symptoms include mild shortness of breath, nausea, and perhaps a bit of lightheadedness. He has never had similar symptoms and he has no known personal or family history of coronary artery disease. He has never had a stress test. He does not typically experience GERD symptoms and the incident on to state evening after eating chili seems to be incidental. He has not had fever, chills, sweats, epigastric or abdominal pain, or vomiting. In the ED: Vital signs were stable on arrival, blood pressures were a bit elevated in the 150s systolic. Pertinent labs include a white blood cell count of 16.2, random glucose of 160, and a troponin of 0.124. CMP and lipase were unremarkable. Chest x-ray showed no acute cardiopulmonary disease. CT of the chest, abdomen, and pelvis showed aortic atherosclerosis with no aneurysm or dissection, mild emphysema, 17 mm right adrenal mass which is likely an adenoma, and gallbladder distension which may be secondary to fasting. EKG showed a sinus rhythm with a rate of 61, normal DE interval, and no acute ST segment depression or elevation. He was given a dose of morphine which helped his chronic sciatica pain but did not improve the pressure in his chest much. Nitroglycerin has helped the pressure. Hospital Course: 62-year-old male presented with chest pain he was found to have acute coronary syndrome with significant elevated tropes, patient was seen by lap machine tender Cardiology had a cardiac catheterization showed single-vessel severe coronary artery disease and 2 drug alluding stent were placed, today patient was seen by Cardiology patient is clinically stable he has no complaint of chest will go and discharge the patient today. Time Spent with Patient Time
== END 2023-02-09 16:43 | disposition home or self-care (01) | DRG 174 ==
LOC: ANHED 13:10 → ANHIMU 14:22 → ANHICU 02-09 07:53 → ANHIMU 02-12 14:02
PROVIDERS: Emergency Medicine; Internal Medicine; Internal Medicine Cardiovascular Disease; Physician Assistant; Admitting Provider Chiropractor; Emergency Provider Preventive Medicine Aerospace Medicine; PCP Physician Assistant; Visit Provider Family Medicine
PROC: 4A023N7 Measurement of Cardiac Sampling and Pressure, Left Heart, Percutaneous Approach (ICD-10-PCS; CPT 93452; principal; 2023-02-09 01:30)
PROC: 027035Z Dilation of Coronary Artery, One Artery with Two Drug-eluting Intraluminal Devices, Percutaneous Approach (ICD-10-PCS; 2023-02-09 01:30)
PROC: 027035Z Dilation of Coronary Artery, One Artery with Two Drug-eluting Intraluminal Devices, Percutaneous Approach (ICD-10-PCS; 2023-02-09 01:30)
PROC: 027035Z Dilation of Coronary Artery, One Artery with Two Drug-eluting Intraluminal Devices, Percutaneous Approach (ICD-10-PCS; 2023-02-09 01:30)
DX: I21.4 Non-ST elevation (NSTEMI) myocardial infarction (principal); E27.8 Other specified disorders of adrenal gland; I70.0 Atherosclerosis of aorta; E78.5 Hyperlipidemia, unspecified; I25.10 Atherosclerotic heart disease of native coronary artery without angina pectoris; I10 Essential (primary) hypertension; R73.03 Prediabetes; Z87.891 Personal history of nicotine dependence
CPT/HCPCS: 36415; 71046; 71275; 74174; 80048; 80053; 80061; 82948; 83036; 83690; 84443; 84484; 85025; 85610; 85730; 92978; 93005; 93306; 93458; 96374; 96375; 99285; A9270; C1725; C1753; C1769; C1874; C1887; C1894; C8929; C9606; G0269; J0583; J1644; J2250; J2270; J2405; J3010; J7030; Q9957; Q9967